=== PATIENT | female | born 1960 | race Caucasian/White ===

== ENCOUNTER → 2016-09-21 | Outpatient (CLI) | payer OTHER ==
[~2016-09-21] MED LIST: ALBU14.76 IH; ALBU3SOL7 IH; ASPI81TA2 PO; ASPI81TA84 PO; CHOL100017 PO; CIPR-280 PO; CITA10TA13 PO; CLIN-89 PO; DAPS25TA6; FLUT16SP EA NOSTRIL; FLUT1BLS INH; GABA-305 PO; HYDR-3989 PO; LOSA25TA9 PO; METO50TA5 PO; MULT1CAP47 PO; SIMV40TA73 PO; SODI45SP7 EA NOSTRIL; TORS20TA PO
[2016-09-21 12:22] LABS: BLOOD, URINE NEGATIVE (NEGATIVE); COLOR,URINE YELLOW (YELLOW); LEUKOCYTE ESTERASE ,URINE NEGATIVE (NEGATIVE); NITRITE,URINE NEGATIVE (NEGATIVE); UROBILINOGEN,URINE 0.2 EU/DL (NORMAL)
[2016-09-21 12:25] LABS: BASOPHILS # (AUTO) 0.1 T/MM3 (0-0.2); BASOPHILS % (AUTO) 0.8 % (0-2); EOSINOPHILS # (AUTO) 0.4 T/MM3 (0-0.5); EOSINOPHILS % (AUTO) 4.9 % (0-4); HCT - HEMATOCRIT 42.6 % (36-46); IMMATURE GRANULOCYTE # (AUTO) 0.03 T/MM3 (0.00-0.03); IMMATURE GRANULOCYTE % (AUTO) 0.4 % (0.0-0.5); LYMPHOCYTES # (AUTO) 1.4 T/MM3 (1-4.8); LYMPHOCYTES % (AUTO) 17.5 % (23-45); MEAN CORPUSCULAR HGB 32.4 UUG (26-34); MEAN CORPUSCULAR HGB CONC(MCHC 32.9 GM/DL (31-37); MEAN CORPUSCULAR VOLUME 98.6 UM3 (80-100); MEAN PLATELET VOLUME 10.1 UM3 (9.4-12.4); MONOCYTES # (AUTO) 0.5 T/MM3 (0-0.8); MONOCYTES % (AUTO) 6.5 % (0-9.0); NEUTROPHILS #(AUTO)-ABSOLUTE 5.4 T/MM3 (1.8-7.7); NEUTROPHILS % (AUTO) 69.9 % (33-66); RED BLOOD COUNT 4.32 M/MM3 (4.00-5.20); WBC - WHITE BLOOD COUNT 7.7 T/MM3 (4.5-11.0)
[2016-09-21 12:30] LABS: CREATININE, URINE RANDOM 65.2 MG/DL
[2016-09-21 12:32] LABS: ALBUMIN 3.9 G/DL (3.5-5.0); ALBUMIN/GLOBULIN RATIO 1.3 RATIO (1.1-2.2); ALKALINE PHOSPHATASE 73 U/L (38-126); ALT (SGPT) 31 U/L (9-52); ANION GAP 11 MEQ/L (5-15); AST (SGOT) 14 U/L (14-36); BUN/CREATININE RATIO 16 RATIO (6-26); CALCIUM 9.5 MG/DL (8.4-10.2); CHLORIDE 105 MEQ/L (98-107); CO2 - CARBON DIOXIDE 28 MEQ/L (22-30); CREATININE 1.4 MG/DL (0.7-1.2); GLOMERULAR FILTRATION RATE 39; GLUCOSE 104 MG/DL (65-110); PHOSPHORUS 4.1 MG/DL (2.5-4.5); POTASSIUM 4.8 MEQ/L (3.6-5); SODIUM 144 MEQ/L (134-144); TOTAL PROTEIN 6.8 G/DL (6.3-8.2); URIC ACID 11.6 MG/DL (2.5-7.5)
[2016-09-21 12:50] LABS: BACTERIA,URINE 1+ (NEGATIVE); MUCUS,URINE PRESENT; RBC,URINE 0-1 /HPF (0-3); WBC,URINE 0-1 /HPF (0-5)
[2016-09-23 00:57] LABS: VLDL CHOLESTEROL 41.2 MG/DL (0-28)
[2016-09-23 10:49] LABS: LDL CHOLESTEROL,CALCULATED 60.8 (66-159); RISK FACTOR 2.5 RATIO (0-4.0)
== END ==
LOC: LAB 11:51
PROVIDERS: ATTEND Internal Medicine Nephrology
DX: I12.9 Hypertensive chronic kidney disease with stage 1 through stage 4 chronic kidney disease, or unspecified chronic kidney disease (principal); N18.3 Chronic kidney disease, stage 3 (moderate); E78.5 Hyperlipidemia, unspecified; R80.9 Proteinuria, unspecified
CPT/HCPCS: 36415; 80053; 80061; 81001; 82306; 82570; 83735; 83970; 84100; 84156; 84550; 85025

== ENCOUNTER 2017-11-02 13:31 | Observation (INO) ==
[2017-11-02] MEDS ORDERED: ALBUTEROL/IPRATROPIUM 2.5mg-0.5mg/3ml NEB AEROSOL ONE ×2 (13:43→14:09)
[2017-11-02] MEDS ORDERED: NS 1,000 ML IV SCH (14:00)
[2017-11-02] MEDS ORDERED: METHYLPREDNISOLONE SOD SUCC 125mg/2ml INJECTION IVP ONE (14:08)
[2017-11-02] MEDS: SALINE FLUSH 10ml SYRINGE IVF PRN ×2 (14:32→20:16)
--- NOTE | 2017-11-02 15:17 | XRay Report ---
LOCATION OF DICTATION: [facility] EXAM: XR chest 2V HISTORY: dyspnea COMPARISON: No prior studies available for comparison. FINDINGS: The heart size is normal. The mediastinal configuration is unremarkable. Mild chronic interstitial changes demonstrated within the bilateral lungs. There are no consolidating opacities or pleural effusions. There is no evidence for a pneumothorax. The osseous structures are within normal limits. IMPRESSION: Mild stable chronic appearing interstitial changes without evidence for developing pneumonia. .
--- NOTE | 2017-11-02 15:44 | Emergency Department Report ---
General Adult HPI - General Chief complaint: Shortness of Breath/Dyspnea Stated complaint: soa Time Seen by Provider: 11/02/17 13:35 - History of Present Illness HPI narrative: 57-year-old female presents with acute shortness of breath. Patient has history of COPD and is chronically on 3 L of oxygen at home. She uses BiPAP at night when she sleeps. She has noted increasing shortness of breath over the last couple days with no fever or chills. She does smoke tobacco, smoking approximately one pack per day. She was seen by primary care today and sent to ED because of worsening dyspnea. She has previously been on large doses of steroids due to "chronic kidney disease". She has tried to stay off of them lately, but has used them previously for breathing issues as well. - Related Data Home Medications Medication Instructions Recorded Confirmed Losartan Potassium [Cozaar] 25 mg PO BID #0 07/01/09 11/02/17 Simvastatin [Zocor] 40 mg PO HS #0 07/01/09 11/02/17 Albuterol/Ipratropium [Duoneb] 1 unit AEROSOL QID 03/14/17 11/02/17 Ipatropium/Albuterol [Combivent 1 puff INH QID 03/14/17 11/02/17 Respimat Inhaler] Allopurinol [Zyloprim] 200 mg PO DAILY 11/02/17 11/02/17 Aspirin [Adult Low Dose Aspirin EC] 81 mg PO DAILY 11/02/17 11/02/17 Fluticasone/Vilanterol Inhaler 1 puff INH DAILY 11/02/17 11/02/17 [Breo Ellipta 100-25 mcg Inhaler] Gabapentin [Neurontin] 600 mg PO TID 11/02/17 11/02/17 Metoprolol Tartrate 50 mg PO BID 11/02/17 11/02/17 Multi-Vitamin Plain [Theragran] 1 tab PO DAILY 11/02/17 11/02/17 Torsemide 10 mg PO DAILY 11/02/17 11/02/17 Previous Rx's Medication Instructions Recorded Citalopram Hydrobromide [Celexa] 10 mg PO DAILY #30 tab 04/02/16 Allergies Allergy/AdvReac Type Severity Reaction Status Date / Time Penicillins Allergy Unknown Verified 08/16/17 13:32 Sulfa (Sulfonamide Allergy Unknown Verified 08/16/17 13:32 Antibiotics) Review of Systems All systems: reviewed and negative except as stated PFSH Patient Stated Medical History Hypertension Yes Chronic Obstructive Pulmonary Yes Disease (COPD) Sleep Apnea Yes Hx Renal Disease Yes Depression Yes Clinic Medical History (Last Updated 08/16/17 @ 13:37 by NIKKI Hahn) Seasonal allergies (Chronic Medical) COPD (chronic obstructive pulmonary disease) (Chronic Medical) CKD (chronic kidney disease) stage 3, GFR 30-59 ml/min (Chronic Medical) HTN (hypertension) (Chronic Medical) Surgical History: *[place] teeth. *tonsils. Family History: Family History (Last Updated 08/16/17 @ 13:39 by NIKKI Hahn) Mother TIA (transient ischemic attack) - Social History Smoking status: Current every day smoker Substance use type: does not use Alcohol intake: current Alcohol intake frequency: 0-2 drinks per day Physical Exam - Normal Exams: Head:: Normocephalic without trauma Cardiovascular:: Regular rate and rhythm, without murmur or gallop, Pulses 2+ all extremities, capillary refill, <2 seconds all extremities Abdomen:: Bowel sounds positive, soft, non-tender, non-distended, no hepatosplenomegaly, masses or bruits noted Neurological:: Patient is alert, and oriented, cranial nerves, motor/sensory/ cerebellar, exams w/o gross deficits, to observation Psychiatric:: Patient exhibits, appropriate attention, emotion and affect - Respiratory Respiratory exam: Present: respiratory distress, wheezes Course Vital Signs Temperature 98.0 F 11/02/17 13:32 Pulse Rate 94 11/02/17 13:32 Respiratory Rate 42 H 11/02/17 13:32 Blood Pressure 161/96 H 11/02/17 13:32 Pulse Oximetry 92 11/02/17 13:32 Temperature 98.0 F 11/02/17 13:32 Pulse Rate 89 11/02/17 15:23 Respiratory Rate 22 11/02/17 15:23 Blood Pressure 150/76 H 11/02/17 15:23 Pulse Oximetry 92 11/02/17 15:23 Medical Decision Making - MDM Narrative Medical decision making narrative: Peripheral IV started with normal saline, IV Solu-Medrol Medrol 125 mg given. Patient given DuoNeb 2 treatments. CBC is appropriate, BUN 12 with creatinine 1.0. Chest x-ray shows no acute infiltrate. Patient is still requiring 3 L nasal cannula, but having to breathe with pursed lips in order to move air. She is going to require BiPAP much sooner today than her normal time, as she uses BiPAP at night only. Hospitalist consulted as I feel patient needs at least an observation admit to give her time to improve oxygenation and she is being treated with steroids. She will be admitted observation. - Lab Data Result diagrams: 11/02/17 13:46 11/02/17 13:46 Lab Results 11/02/17 11/02/17 Range/Units 13:46 13:46 WBC 5.9 (4.5-11.0) T/MM3 RBC 4.11 (4.00-5.20) M/MM3 Hgb 13.8 (12-16) GM/DL Hct 41.1 (36-46) % MCV 100.0 (80-100) UM3 MCH 33.6 (26-34) UUG MCHC 33.6 (31-37) GM/DL RDW Std Deviation 53.7 H (36.9-50.2) FL Plt Count 142 (130-400) T/MM3 MPV 10.0 (9.4-12.4) UM3 Immature Gran % (Auto) 0.3 (0.0-0.5) % Neut % (Auto) 67.0 H (33-66) % Lymph % (Auto) 16.6 L (23-45) % Davis % (Auto) 13.9 H (0-9.0) % Eos % (Auto) 1.4 (0-4) % Baso % (Auto) 0.8 (0-2) % Neut # (Auto) 4.0 (1.8-7.7) T/MM3 Lymph # (Auto) 1.0 (1-4.8) T/MM3 Davis # (Auto) 0.8 (0-0.8) T/MM3 Eos # (Auto) 0.1 (0-0.5) T/MM3 Baso # (Auto) 0.1 (0-0.2) T/MM3 Abs Immat Gran (auto) 0.02 (0.00-0.03) T/MM3 Turbidity < 20 (0-20) Sodium 144 (136-146) MEQ/L Potassium 3.9 (3.6-5) MEQ/L Chloride 105 (98-107) MEQ/L Carbon Dioxide 28 (22-30) MEQ/L Anion Gap 11 (5-15) meq/L BUN 12.0 (7-17) MG/DL Creatinine 1.0 (0.7-1.2) mg/dL GFR Calculation 57 BUN/Creatinine Ratio 12 (6-26) RATIO Glucose 106 (65-110) MG/DL Calculated Osmolality 277 (261-280) MOSM/KG Calcium 9.0 (8.4-10.2) MG/DL Total Bilirubin 1.10 (0.20-1.30) MG/DL Icterus Index < 2 (0-7) AST 18 (14-36) U/L ALT 17 (1-35) U/L Alkaline Phosphatase 75 (38-126) U/L Troponin I < 0.012 (0-0.12) ng/ml NT-Pro-B Natriuret Pep 365 H (0-175) pg/mL Total Protein 6.9 (6.3-8.2) g/dL Albumin 4.0 (3.5-5.0) g/dL Globulin 2.9 (2.4-3.6) G/DL Albumin/Globulin Ratio 1.4 (1.1-2.2) RATIO Specimen Hemolysis < 15 (0-25) - EKG Data EKG #1 EKG attestation: Yes: I reviewed and interpreted this EKG. EKG results narrative: 86 bpm EKG shows normal: sinus rhythm Rate: normal Rhythm: NSR Interpretation: nonspecific ST-T wave changes Disposition Clinical Impression: Acute exacerbation of chronic obstructive airways disease Disposition: 02 [place] [facility] [place] Stable Prescriptions: No Action Simvastatin [Zocor] 40 mg PO HS #0 Ipatropium/Albuterol [Combivent Respimat Inhaler] 1 puff INH QID Albuterol/Ipratropium [Duoneb] 1 unit AEROSOL QID Gabapentin [Neurontin] 600 mg PO TID Aspirin [Adult Low Dose Aspirin EC] 81 mg PO DAILY Torsemide 10 mg PO DAILY Losartan Potassium [Cozaar] 25 mg PO BID #0 Citalopram Hydrobromide [Celexa] 10 mg PO DAILY #30 tab Metoprolol Tartrate 50 mg PO BID Allopurinol [Zyloprim] 200 mg PO DAILY Multi-Vitamin Plain [Theragran] 1 tab PO DAILY Fluticasone/Vilanterol Inhaler [Breo Ellipta 100-25 mcg Inhaler] 1 puff INH DAILY Referrals: Ayush Olsen MD [Primary Care Provider] - Time of Disposition: 15:58 - Seen By: physician
[2017-11-02] MEDS ORDERED: NICOTINE 21 MG PATCH TD ONE (15:57)
[2017-11-02 16:46] VITALS: BMI 45.1
--- NOTE | 2017-11-02 17:22 | History & Physical Report ---
History of Present Illness Date: 11/02/17 Chief complaint: SOA HPI: Vivi is a 57 yo female patient of Dr[address] Olsen. She presents to ED for SOA progressive since 10/29/17. She has COPD. Thinks she has a cold that may have exacerbated her COPD. No ill contacts. She is trying to quit smoking. Coughs when she lays down and can't get any sleep. Eating and drinking fine. Uses Bipap anytime she lays down. Usually on 3L O2 at home. Review of Systems All systems PM: 10-point ROS was reviewed, no additional remarkable complaints except (SOA, cough, chronic L leg pain, anxiety, runny nose, scratchy throat) Past Medical History Medical History: Medical History (Last Updated 08/16/17 @ 13:37 by Ling Ribeiro Asher) Seasonal allergies (Chronic) COPD (chronic obstructive pulmonary disease) (Chronic) CKD (chronic kidney disease) stage 3, GFR 30-59 ml/min (Chronic) HTN (hypertension) (Chronic) Surgical History: *[place] teeth. *tonsils. Family History: Family History Mother TIA (transient ischemic attack) Family History Updates: Father of kidney failure. Had cancer - pt doesn't know what type. Family History: As Above - Social History Smoking status: Current every day smoker (1ppd) Alcohol intake frequency: other (says she drinks "socially." Gets agitated and states it is no one's business how much she drinks. States she won't go into alcohol withdrawal.) Household members: spouse Current occupational status: employed Current residence: Apartment/Private Home Social history: PCP - Dr. Olsen Ortho -Dr. Waggoner Nephrology - Dr. Marie Medications Home Medications Medication Instructions Recorded Confirmed Type Losartan Potassium [Cozaar] 25 mg PO BID #0 07/01/09 11/02/17 History Simvastatin [Zocor] 40 mg PO HS #0 07/01/09 11/02/17 History Citalopram Hydrobromide [Celexa] 10 mg PO DAILY #30 tab 04/02/16 11/02/17 Rx Albuterol/Ipratropium [Duoneb] 1 unit AEROSOL QID 03/14/17 11/02/17 History Ipatropium/Albuterol [Combivent 1 puff INH QID 03/14/17 11/02/17 History Respimat Inhaler] Allopurinol [Zyloprim] 200 mg PO DAILY 11/02/17 11/02/17 History Aspirin [Adult Low Dose Aspirin EC] 81 mg PO DAILY 11/02/17 11/02/17 History Fluticasone/Vilanterol Inhaler 1 puff INH DAILY 11/02/17 11/02/17 History [Breo Ellipta 100-25 mcg Inhaler] Gabapentin [Neurontin] 600 mg PO TID 11/02/17 11/02/17 History Metoprolol Tartrate 50 mg PO BID 11/02/17 11/02/17 History Multi-Vitamin Plain [Theragran] 1 tab PO DAILY 11/02/17 11/02/17 History Torsemide 10 mg PO DAILY 11/02/17 11/02/17 History Allergies Allergy/AdvReac Type Severity Reaction Status Date / Time Penicillins Allergy Unknown Verified 08/16/17 13:32 Sulfa (Sulfonamide Allergy Unknown Verified 08/16/17 13:32 Antibiotics) Exam Vital Signs: Temperature 98.3 F 11/02/17 16:30 Pulse Rate 94 11/02/17 16:59 Respiratory Rate 20 11/02/17 16:59 Blood Pressure 189/95 H 11/02/17 16:59 Pulse Oximetry 93 11/02/17 16:59 Height/Weight/BMI: Height 1.75 m Weight 138.5 kg Body Mass Index 45.1 - Constitutional Present: no acute distress, well nourished, well developed - Routine HEENT Exam Head: Present: normocephalic, atraumatic Eye: Present: EOMI, PERRL ENT: Present: mucous membranes moist. Absent: oropharynx clear (erythema) - Routine Neck Exam Present: supple, lymphadenopathy (b/l ant cervical) - Routine Respiratory Exam Present: wheezes (diffuse exp wheezes) - Routine Cardiovascular Exam Present: RRR, no murmur - Routine Abdominal Exam Present: soft, normoactive bowel sounds. Absent: tenderness, distended - Routine Extremities Exam Present: edema (tr), normal capillary refill Comments: chronic skin changes to LE's consistent with PVD Has a healing ulceration to the R anterior dean with surrounding erythematous/thickened skin. Nontender and not warm. - Routine Skin Exam Present: dry, warm - Routine Neurological Exam Present: alert, oriented X3, CN II-XII intact - Routine Psychiatric Exam Present: normal affect, cooperative Results - Labs CBC & Chem 7: 11/02/17 13:46 11/02/17 13:46 Labs: Laboratory Tests 11/02/17 13:46 AST 18 ALT 17 Alkaline Phosphatase 75 Troponin I < 0.012 NT-Pro-B Natriuret Pep 365 H - Imaging and Cardiology CT scan - abdomen Additional comments: Date of Exam: 11/02/17 EXAM: XR chest 2V HISTORY: dyspnea FINDINGS: The heart size is normal. The mediastinal configuration is unremarkable. Mild chronic interstitial changes demonstrated within the bilateral lungs. There are no consolidating opacities or pleural effusions. There is no evidence for a pneumothorax. The osseous structures are within normal limits. IMPRESSION: Mild stable chronic appearing interstitial changes without evidence for developing pneumonia. Assessment and Plan (1) COPD with acute exacerbation Current visit: No Status: Acute Assessment and Plan: Assessment Acute on chronic respiratory failure with hypoxia COPD exacerbation URI Gout HTN HLD CKD Seasonal allergies Chronic L leg pain R lower extremity ulceration - venous vs arterial ulceration Anxiety Tobacco use Plan Admit, OBS. Solumedrol and Duonebs given in ER. Continue IV solumedrol and Duonebs/ pulmicort. Acapella. Check respiratory panel. Titrate O2 as needed and may use home Bipap. Consult RT for tobacco cessation. Nicotine replacement. Continue home meds SCD's for DVT PPx Full code. DR. Olsen - PCP. Resuscitation Status: Full Code - Physician Narrative Physician: Mitzy Davis MD Narrative: Date: 11/02/17 Time: 1854 I have independently evaluated and examined this patient. I reviewed the chart, the patient's history, and the ENRICHMENT ASSISTANT/PA's documented findings as above. We discussed and formulated the assessment and plan as above with additions as below: Mrs. Dhillon is a 55-year-old female with history of stage III chronic kidney disease/membranous nephropathy (in remission) and COPD/FAUSTINO who continues to smoke. She has developed increasing dyspnea, cough, nasal and chest congestion over the past 4-5 days and reports feeling like she has an upper respiratory infection which is triggered worsening symptoms. In the emergency room respiratory distress with tripod positioning and purse lipped breathing was described with drop in oxygen saturation whenever she was not pursed lip breathing or on BiPAP. She is typically on 3 L supplemental oxygen at home and has maintained saturations on 3 L as long as utilizing pursed lipped breathing technique. She's currently on 4 L with O2 sat of 90%. BiPAP previously prescribed by sleep medicine physician a number of years ago, no follow-up in the recent past. NAD with BiPAP on Respirations nonlabored at present, fair airflow, no wheezing appreciated at present nor rhonchi. Regular rhythm, trace edema bilateral lower extremities, superficial ulceration overlying mid right dean. Laboratory data reviewed-unremarkable; GFR 57 Chest x-ray reviewed by myself-left base slightly obscured but no evidence of pneumonia or volume overload. EKG also reviewed by myself-mild nonspecific interventricular conduction delay and diffuse T-wave flattening but no acute changes. COPD exacerbation, likely triggered by viral URI-respiratory viral panel pending , sputum culture to be obtained if possible. Continue IV steroids overnight and reassess need be on that time. Hopefully we' ll be able to convert to oral steroids tomorrow to facilitate early discharge with continuation of home BiPAP. If longer hospitalization will be needed may wish to consult Dr. Gallardo. Discussed with Dr. Hall, old records reviewed. Hospital Course Summary Disclaimer: The visit summary below is not to be considered part of the above Progress Note. Hospital Course: 11/02/17 Admit, OBS. Solumedrol and Duonebs given in ER. Continue IV solumedrol and Duonebs/ pulmicort. Acapella. Check respiratory panel. Titrate O2 as needed and may use home Bipap. Consult RT for tobacco cessation. Nicotine replacement. Continue home meds SCD's for DVT PPx Full code. DR. Olsen - PCP
[2017-11-02] MEDS ORDERED: NS 1,000 ML IV ONE (18:03)
[2017-11-02] MEDS: BUDESONIDE INH.SOLN 0.5mg/2ml NEB AEROSOL SCH (19:30)
[2017-11-02] MEDS: ALBUTEROL/IPRATROPIUM 2.5mg-0.5mg/3ml NEB AEROSOL PRN (19:31)
[2017-11-02] MEDS: SIMVASTATIN 40 MG TABLET PO SCH (20:15)
[2017-11-02] MEDS: GABAPENTIN 600 MG TABLET PO SCH (20:15)
[2017-11-02] MEDS: METHYLPREDNISOLONE SOD SUCC 125mg/2ml INJECTION IVP SCH (20:15)
[2017-11-02] MEDS: LOSARTAN 50 MG TABLET PO SCH (20:16)
[2017-11-03] MEDS: METHYLPREDNISOLONE SOD SUCC 125mg/2ml INJECTION IVP SCH ×4 (03:50→20:01)
[2017-11-03] MEDS: SALINE FLUSH 10ml SYRINGE IVF PRN ×2 (03:51→08:07)
[2017-11-03] MEDS: LOSARTAN 50 MG TABLET PO SCH ×2 (08:04→20:01)
[2017-11-03] MEDS: GABAPENTIN 600 MG TABLET PO SCH ×3 (08:05→20:01)
[2017-11-03] MEDS: ASPIRIN *EC* 81 MG TABLET PO SCH (08:05)
[2017-11-03] MEDS: CITALOPRAM 10 MG TABLET PO SCH (08:05)
[2017-11-03] MEDS: TORSEMIDE 20 MG TABLET PO SCH (08:06)
[2017-11-03] MEDS: ALLOPURINOL 100 MG TABLET PO SCH (08:06)
[2017-11-03] MEDS: NICOTINE 21 MG PATCH TD SCH (08:06)
--- NOTE | 2017-11-03 08:19 | Progress Note ---
- Date 11/03/17 Subjective: Vivi is seen in follow-up of COPD exacerbation related to parainfluenza 3. She reports she is feeling about 50% better. She does not feel comfortable going home at this time. She has required her BiPAP and 6 L of O2 overnight. Usual home O2 is 3 L. Other than her breathing condition, she feels fine. No chest pain, nausea or vomiting, fever or chills. Objective Vital signs: Temperature 96.6 F L 11/03/17 07:39 Pulse Rate 70 11/03/17 07:39 Respiratory Rate 22 11/03/17 07:39 Blood Pressure 172/93 H 11/03/17 07:39 Pulse Oximetry 96 11/03/17 07:39 Height/Weight/BMI: Height 1.75 m Weight 138.5 kg Body Mass Index 45.1 - Constitutional Present: no acute distress, well nourished, well developed - Routine HEENT Exam Head: Present: normocephalic, atraumatic - Routine Respiratory Exam Present: wheezes (coarse expiratory diffuse) - Routine Cardiovascular Exam Present: RRR, no murmur - Routine Abdominal Exam Present: soft, non distended, non tender - Routine Extremities Exam Present: no edema, normal capillary refill Comments: Superficial ulceration right lower leg - Routine Skin Exam Present: dry, warm - Routine Neurological Exam Present: alert, oriented X3 - Routine Lymphatic Exam Lymphatic: Absent: adenopathy - Routine Psychiatric Exam Present: normal affect, cooperative Results - Labs CBC & Chem 7: 11/03/17 04:46 11/03/17 04:46 Microbiology Results: Microbiology 11/02/17 23:48 Sputum, Expectorated Gram Stain - Preliminary Assessment and Plan (1) COPD with acute exacerbation Current visit: No Status: Acute Assessment and Plan: Assessment Acute on chronic respiratory failure with hypoxia COPD exacerbation URI - Parainfluenza 3 isolated Gout HTN HLD Stage III CKD Seasonal allergies Chronic L leg pain R lower extremity ulceration - venous vs arterial ulceration Anxiety Tobacco use Morbid obesity with BMI 45.1 Plan Continue Solu-Medrol IV, may be able to convert to by mouth later today or tomorrow. Continue DuoNeb/Pulmicort/Acapella. Continue to titrate O2 as needed and use home Bipap prn. Possible DC home tomorrow. DVT Prophylaxis: SCD's Resuscitation Status: Full Code - Time spent with patient Time with patient PN: 25 minutes - Physician Narrative Physician: Lopez Sanchez MD Narrative: Date: 11/03/17 Time: 1647 Have independently interviewed & examined pt. Chart reviewed. Case discussed with CM & my PA. Care plan developed with my supervision; agree with above. Doing better-breathing easier, less cough and congestion, not having the nausea and decreased appetite she had over the weekend. Moving more-but still very SOA with activities. While making gains, not feeling up to going home today--not wanting to go home too soon just to deteriorate and have to return. Lungs: decreased breath sounds, faint wheezes, mild labor/conversational dyspnea despite O2. CV: regular MSE: awake alert appropriate Plan: Will continue with obs care and treatment-anticipate discharge tomorrow unless patient has significant set back overnight. Hospital Course Summary Disclaimer: The visit summary below is not to be considered part of the above Progress Note. Hospital Course: 11/02/17 Admit, OBS. Solumedrol and Duonebs given in ER. Continue IV solumedrol and Duonebs/ pulmicort. Acapella. Check respiratory panel. Titrate O2 as needed and may use home Bipap. Consult RT for tobacco cessation. Nicotine replacement. Continue home meds SCD's for DVT PPx Full code. DR. Olsen - PCP 11/03/17 Continue Solu-Medrol IV, may be able to convert to by mouth later today or tomorrow. Continue DuoNeb/Pulmicort/Acapella. Continue to titrate O2 as needed and use home Bipap prn. Possible DC tomorrow.
[2017-11-03] MEDS: BUDESONIDE INH.SOLN 0.5mg/2ml NEB AEROSOL SCH ×2 (08:27→19:15)
[2017-11-03] MEDS: ALBUTEROL/IPRATROPIUM 2.5mg-0.5mg/3ml NEB AEROSOL PRN ×4 (08:27→19:15)
[2017-11-03] MEDS: NICOTINE PATCH REMOVAL TD SCH (16:23)
[2017-11-03] MEDS ORDERED: ZOLPIDEM 5 MG TABLET PO PRN (19:46)
[2017-11-03] MEDS: SIMVASTATIN 40 MG TABLET PO SCH (20:01)
[2017-11-04] MEDS: METHYLPREDNISOLONE SOD SUCC 125mg/2ml INJECTION IVP SCH ×2 (03:17→09:06)
[2017-11-04] MEDS: ALBUTEROL/IPRATROPIUM 2.5mg-0.5mg/3ml NEB AEROSOL PRN ×2 (07:21→10:48)
[2017-11-04] MEDS: BUDESONIDE INH.SOLN 0.5mg/2ml NEB AEROSOL SCH (07:21)
[2017-11-04 08:15] VITALS: BP 182/93; PULSE 91; TEMP 96.2
[2017-11-04] MEDS: NICOTINE 21 MG PATCH TD SCH (09:05)
[2017-11-04] MEDS: NICOTINE PATCH REMOVAL TD SCH (09:05)
[2017-11-04] MEDS: LOSARTAN 50 MG TABLET PO SCH (09:06)
[2017-11-04] MEDS: GABAPENTIN 600 MG TABLET PO SCH (09:06)
[2017-11-04] MEDS: ALLOPURINOL 100 MG TABLET PO SCH (09:07)
[2017-11-04] MEDS: TORSEMIDE 20 MG TABLET PO SCH (09:07)
[2017-11-04] MEDS: CITALOPRAM 10 MG TABLET PO SCH (09:08)
[2017-11-04] MEDS: ASPIRIN *EC* 81 MG TABLET PO SCH (09:08)
[2017-11-04] MEDS: SALINE FLUSH 10ml SYRINGE IVF PRN (09:08)
--- NOTE | 2017-11-04 09:41 | Discharge Summary ---
Discharge Information Date of admission: 11/02/17 16:21 Anticipated date of discharge: 11/04/17 Attending Physician: Lopez Sanchez MD Primary care physician: Ayush Olsen MD - Discharge Diagnosis (1) COPD with acute exacerbation Status: Acute Discharge diagnosis Acute on chronic respiratory failure with hypoxia Associated conditions and complications COPD exacerbation URI - Parainfluenza 3 isolated Gout HTN HLD Stage III CKD Seasonal allergies Chronic L leg pain R lower extremity ulceration - venous vs arterial ulceration Anxiety Tobacco use Morbid obesity with BMI 45.2 - Laboratory Labs: Admission Labs 11/02/17 11/02/17 13:46 13:46 WBC 5.9 RBC 4.11 Hgb 13.8 Hct 41.1 Plt Count 142 Sodium 144 Potassium 3.9 Chloride 105 Carbon Dioxide 28 Anion Gap 11 BUN 12.0 Creatinine 1.0 Calcium 9.0 Troponin I < 0.012 NT-Pro-B Natriuret Pep 365 H Respiratory panel 11/02/17 18:22 Parainfluenza 3 (PCR) Detected A* - Microbiology Microbiology 11/02/17 23:48 Sputum culture pending - Radiology Radiology: Date of Exam: 11/02/17 EXAM: XR chest 2V FINDINGS: The heart size is normal. The mediastinal configuration is unremarkable. Mild chronic interstitial changes demonstrated within the bilateral lungs. There are no consolidating opacities or pleural effusions. There is no evidence for a pneumothorax. The osseous structures are within normal limits. IMPRESSION: Mild stable chronic appearing interstitial changes without evidence for developing pneumonia. History of Present Illness HPI: Vivi is a 57 yo female patient of Dr. Olsen. She presents to ED for SOA progressive since 10/29/17. She has COPD. Thinks she has a cold that may have exacerbated her COPD. No ill contacts. She is trying to quit smoking. Coughs when she lays down and can't get any sleep. Eating and drinking fine. Uses Bipap anytime she lays down. Usually on 3L O2 at home. For complete details of the H&P refer to that document. Objective Vital signs: Temperature 96.2 F L 11/04/17 08:14 Pulse Rate 91 11/04/17 08:14 Respiratory Rate 24 11/04/17 08:14 Blood Pressure 182/93 H 11/04/17 08:14 Pulse Oximetry 94 11/04/17 08:54 Height/Weight/BMI: Height 1.75 m Weight 138.8 kg Body Mass Index 45.1 - Constitutional Present: no acute distress, well nourished, well developed - Routine HEENT Exam Head: Present: normocephalic, atraumatic - Routine Respiratory Exam Present: wheezes (slight exp wheezes) - Routine Cardiovascular Exam Present: RRR, no murmur - Routine Abdominal Exam Present: soft, non distended, non tender - Routine Extremities Exam Present: no edema, normal capillary refill Comments: healing ulceration to anterior R lower leg - Routine Skin Exam Present: dry, warm - Routine Neurological Exam Present: alert, oriented X3 - Routine Lymphatic Exam Lymphatic: Absent: adenopathy - Routine Psychiatric Exam Present: normal affect, cooperative Hospital Course This is a general summary of the patient's hospital course. For more details refer to the complete medical record. Hospital course: 11/02/17 Admit, OBS. Solu-Medrol and DuoNeb given in ER. Continue IV Solu-Medrol and DuoNeb/ Pulmicort. Acapella. Check respiratory panel. Titrate O2 as needed and may use home Bipap. Consult RT for tobacco cessation. Nicotine replacement. Continue home meds SCD's for DVT PPx Full code. DR. Olsen - PCP 11/03/17 Continue Solu-Medrol IV, may be able to convert to by mouth later today or tomorrow. Continue DuoNeb/Pulmicort/Acapella. Continue to titrate O2 as needed and use home Bipap prn. 11/04/17 Patient improved. Can discharge to home today. Convert to po Prednisone x 7 days. Pt requests Ambien as she can't sleep while on Prednisone. Rx's electronically sent to pt's preferred pharmacy on file. Resume home inhalers and continue QID DuoNeb txs. Quit smoking. Work release given to patient. Off this week - return to work on November 11, 2017. Follow up with Dr. Olsen in 1 week. See order for complete details. Time spent with patient: discharge greater than 30 minutes Resuscitation Status: Full Code Discharge Plan - Discharge Disposition Discharge Date: 11/04/17 Disposition: 01 Discharged Home, Self-Care *Condition: Stable Reason For Visit (Visit label in EMR): dyspnea - Discharge Medications *Discharge Medications: New PredniSONE [Deltasone 20 mg] 40 mg PO WB 6 Days #6 tab Zolpidem [Ambien] 5 mg PO HS PRN #7 tab PRN Reason: Insomnia Nicotine Patch [Nicoderm] 21 mg TD DAILY patch Continue Simvastatin [Zocor] 40 mg PO HS #0 Ipatropium/Albuterol [Combivent Respimat Inhaler] 1 puff INH QID Albuterol/Ipratropium [Duoneb] 1 unit AEROSOL QID Gabapentin [Neurontin] 600 mg PO TID Aspirin [Adult Low Dose Aspirin EC] 81 mg PO DAILY Torsemide 10 mg PO DAILY Losartan Potassium [Cozaar] 25 mg PO BID #0 Citalopram Hydrobromide [Celexa] 10 mg PO DAILY #30 tab Metoprolol Tartrate 50 mg PO BID Allopurinol [Zyloprim] 200 mg PO DAILY Multi-Vitamin Plain [Theragran] 1 tab PO DAILY Fluticasone/Vilanterol Inhaler [Breo Ellipta 100-25 mcg Inhaler] 1 puff INH DAILY - Discharge Packet/Instructions *Diet: Regular *Activity: As tolerated *Pain Management/Treatment: per Dr. Olsen *Wound Care: per previous wound care clinic instructions Additional Instructions: Your prescriptions for prednisone and Ambien were sent to [facility] pharmacy. *Expected Signs/Symptoms: Continued improvement *Notify Physician if: You develop fever or increasing shortness of breath *During Business Hours Contact: Dr. Olsen *After Business Hours Contact: [facility] and follow after hours instructions *Pending Lab/Results: Follow up w/Provider (sputum culture) - Referrals/Follow Up *Referrals/Follow Up: Ayush Olsen MD [Primary Care Provider] - 11/11/17 1:45 pm - Patient Handouts Patient Handouts: COPD (Chronic Obstructive Pulmonary Disease) (IP) - Dismissal Complete Discharge Instructions are:: Complete Physician Narrative - Narrative Physician: Lopez Sanchez MD Attestation Narrative: Date: 11/04/17 Time: 1028 I have independently interviewed and examined patient prior to discharge. Chart reviewed. Case discussed with my PA. Care plan developed with my supervision; agree with above. Doing much better this morning-breathing easier, less cough/congestion. No nausea; eating well. Stooling without problems. Able to ambulate without unsteadiness. No f/c. Lungs: decreased bilaterally, no wheezes. CV: regular AB: soft nt/nd MSE: awake alert appropriate, thought linear, converses well. Plan: Medically stable for discharge to home. Oral prednisone, continue home neb treatments. Increase activities as able-may return to work on 11/11/17. Follow up with Dr Schmidt on Thursday - appointment has been made. See orders for discharge details.
--- NOTE | 2017-11-04 10:03 | Work/School Release ---
Work/School Release - Date Date: 11/04/17 - Work Release Remain off work/school for:: Vivi Dhillon was hospitalized at [facility] from November 02 until November 04 2017. She may return to work on November 11, 2017.
[2017-11-04 10:53] VITALS: RESP 20; O2SAT 92
[2017-11-04] MEDS ORDERED: PredniSONE 20 MG TABLET PO SCH (12:00)
== END 2017-11-04 11:50 | disposition home or self-care (01) ==
LOC: EDHOLD 13:31 → ED 13:31 → SUATTDRO 16:21 → EDHOLD 16:35 → MED 16:40
PROVIDERS: ADMIT Internal Medicine; ATTEND Hospitalist